=== PATIENT | male | born 1985 | race Two or more races ===

== ENCOUNTER → 2017-04-03 | Outpatient (REF) | payer SELFPAY | LOC: M LAB REF 19:53 | PROVIDERS: ATTEND Physician Assistant Medical | DX: R30.0 Dysuria (principal) ==

== ENCOUNTER → 2017-04-03 | Outpatient (CLI) | payer SELFPAY | LOC: M ADAMS 10:14 | PROVIDERS: ATTEND Physician Assistant Medical | DX: R30.0 Dysuria (principal) ==